=== PATIENT | male | born 2000 | race Caucasian/White ===

== ENCOUNTER 2022-09-16 00:13 | Emergency (ER) | payer MEDICAID ==
[~2022-09-16] VITALS: Ht 185.4 cm; Wt 79.4 kg
[2022-09-16 00:29] VITALS: BP 119/84
--- NOTE | 2022-09-16 00:46 | NUR ---
TAKEN TO CT
--- NOTE | 2022-09-16 02:38 | NUR ---
THROAT CULTURE SENT TO LAB
--- NOTE | 2022-09-16 03:36 | NUR ---
Patient discharged to home in stable condition. Written and verbal after care instructions given. Patient verbalizes understanding of instruction. PT ambulatory with a steady gait
== END 2022-09-16 04:12 | disposition home or self-care (01) ==
LOC: ER 00:17
DX: J02.9 Acute pharyngitis, unspecified (principal); F17.200 Nicotine dependence, unspecified, uncomplicated
CPT/HCPCS: 87070-TC